=== PATIENT | female | born 1950 | race Caucasian/White ===

== ENCOUNTER 2016-09-02 12:21 | Emergency (ER) | payer BC, SELFPAY ==
[~2016-09-02 12:21] MED LIST: ALEVE220 M1 PO
[2016-09-02 13:26] LABS: BASO % 0.2 % (0-2); EOS % 0.4 % (0-7); EOSINOPHIL ABSOLUTE COUNT 0.1 tho/cmm (0.0-0.7); HCT-HEMATOCRIT 42.1 % (34.0-49.0); IMMATURE GRANULOCYTES ABSOLUTE 0.02 tho/cmm (0-0.03); IMMATURE GRANULOCYTES PERCENT 0.1 % (0-0.3); LYMPH % 15.1 % (20-45); LYMPH ABSOLUTE COUNT 2.2 tho/cmm (0.8-4.5); MCH (MEAN CORPUSCULAR HGB) 30.3 pg (28.0-32.0); MCHC MEAN CORPUSCULAR HGB CONC 33.3 % (32.0-36.0); MCV (MEAN CELL VOLUME) 91.1 fl (82.0-96.0); MEAN PLATELET VOLUME 11.3 cmc (9.4-12.4); MONO % 7.8 % (0-12); MONOCYTE ABSOLUTE COUNT 1.2 tho/cmm (0.0-1.2); NEUTROPHIL ABSOLUTE COUNT 11.2 tho/cmm (1.6-8.0); NEUTROPHIL-AUTOMATED 11.2 tho/cmm (1.6-8.0); NEUTROPHILS % 76.4 % (40-80); PLATELET COUNT 179 tho/cmm (150-450); RED BLOOD COUNT 4.62 mil/cmm (4.00-5.20); RED CELL DISTRIBUTION WIDTH 13.1 % (12.4-16.4); WHITE BLOOD COUNT 14.7 tho/cmm (4.0-10.0)
[2016-09-02 13:48] LABS: ALB/GLOB RATIO 0.9 (0.8-2.0); ALBUMIN 3.8 g/dl (3.5-5.0); ALKALINE PHOSPHATASE 88 U/L (33-138); ALT/SGPT 21 U/L (12-78); ANION GAP 11 mmol/L (0-20); AST/SGOT 16 U/L (10-40); BILIRUBIN,TOTAL 0.8 mg/dl (0-1.5); BLOOD UREA NITROGEN 16 mg/dl (6-24); C-REACTIVE PROTEIN 4.4 mg/dl (0-0.9); CARBON DIOXIDE-VENOUS 25 mmol/L (22-32); CHLORIDE 106 mmol/l (96-110); CREATININE 0.87 mg/dl (0.50-1.10); GLUCOSE 112 mg/dL (70-110); LIPASE 141 U/L (73-393); POTASSIUM 3.9 mmol/L (3.7-5.1); SODIUM 138 mmol/L (135-145); eGFR VALUE FOR BLACK 81 mL/Min
[2016-09-02] MEDS ORDERED: FLAGYL500 M1 PO (14:36)
[2016-09-02] MEDS ORDERED: COMPAZINE10 MG PO (14:36)
[2016-09-02] MEDS ORDERED: CIPRO500 M2 PO (14:45)
== END 2016-09-02 15:43 ==
LOC: EDMED 12:21
PROVIDERS: Emergency Medicine
DX: K57.92 Diverticulitis of intestine, part unspecified, without perforation or abscess without bleeding (principal); Z85.038 Personal history of other malignant neoplasm of large intestine; Z98.890 Other specified postprocedural states
CPT/HCPCS: J1885; J7030; Q9967